=== PATIENT | male | born 1980 | race Two or more races ===

== ENCOUNTER 2021-02-22 21:12 | Emergency (ER) | payer SELFPAY ==
[~2021-02-22] VITALS: Ht 167.6 cm; Wt 65.3 kg
--- NOTE | 2021-02-22 21:19 | NUR ---
BIBS C/O LEFT SIDED ABDOMINAL PAIN [id number]. PATIENT DENIES ANY NAUSEA, VOMITTING AND DIARRHEA. PATIENT ALERT AND ORIENTED X3. AMBULATORY WITH NON ALBORED BREATHING.
[2021-02-22 21:47] LABS: BASOPHILS # (AUTO) 0.1 K/uL (0.0-0.2); BASOPHILS % (AUTO) 1.2 % (0.0-2.0); EOSINOPHILS % (AUTO) 1.2 % (0.0-6.0); HEMATOCRIT 45 % (39-51); HEMOGLOBIN 15.2 g/dL (13.5-17.5); LYMPHOCYTES % (AUTO) 29.6 % (20.0-44.0); MEAN CORPUSCULAR HGB CONC 34 g/dl (31.0-36.0); MEAN CORPUSCULAR VOLUME 86 fL (80-96); MONOCYTES # (AUTO) 0.5 K/uL (0.1-1.30); MONOCYTES % (AUTO) 6.8 % (2.0-12.0); NEUTROPHILS # (AUTO) 4.1 K/uL (1.8-8.9); NEUTROPHILS % (AUTO) 61.2 % (43.0-81.0); PLATELET COUNT (AUTO) 271 K/uL (150-450); WHITE BLOOD COUNT (AUTO) 6.7 K/uL (4.3-11.0)
[2021-02-22 22:02] LABS: ALBUMIN 4.1 g/dL (3.4-5.0); BILIRUBIN,DIRECT 0.2 mg/dL (0.0-0.2); BILIRUBIN,TOTAL 0.5 mg/dL (0.2-1.0); CALCIUM, SERUM 8.3 mg/dL (8.5-10.1); CREATININE 0.8 mg/dL (0.6-1.3); POTASSIUM 3.4 mmol/L (3.5-5.1)
[2021-02-22 22:14] LABS: BILIRUBIN,URINE NEGATIVE (NEGATIVE); COLOR,URINE YELLOW (YELLOW); LEUKOCYTE ESTERASE ,URINE NEGATIVE (NEGATIVE); NITRITE, URINE NEGATIVE (NEGATIVE); PROTEIN,URINE NEGATIVE (NEGATIVE); UGLUCOSE NEGATIVE (NEGATIVE); UROBILINOGEN,URINE 0.2 EU/dL (0.2)
[2021-02-22] MEDS ORDERED: CT SWABBABLE VALVE TRANS SET 1 EA INFUS.SET MC ONE (22:16)
[2021-02-22] MEDS ORDERED: IOHEXOL-300 100 ML VIAL IV ONE (22:16)
[2021-02-22] MEDS ORDERED: IV NS 0.9% 250 ML IV ONE (22:17)
[2021-02-22] MEDS ORDERED: KETOROLAC TROMETHAMINE 15 MG/ML VIAL ONE (22:18)
[2021-02-22] MEDS: KETOROLAC TROMETHAMINE INJ 30 MG/ML VIAL IV ONE (22:24)
--- NOTE | 2021-02-22 22:24 | NUR ---
PT TAKEN TO CT VIA FIDEL[facility]
[2021-02-22] MEDS: IV NS 0.9% 1,000 ML IV ONE (22:25)
[2021-02-22] MEDS ORDERED: ACET-2605 PO (22:58)
[2021-02-22] MEDS ORDERED: DICY10CA37 PO (22:58)
[2021-02-22 23:18] VITALS: BP 123/62
== END 2021-02-22 23:19 | disposition home or self-care (01) ==
LOC: ER 21:17
DX: R10.32 Left lower quadrant pain (principal)
CPT/HCPCS: 36415; 74177; 80048; 80076; 81003; 83690; 85025; 96361; 96374; 99284; J1885; J7030; J7050; Q9967